=== PATIENT | female | born 1980 | race American Indian/Alaskan Native ===

== ENCOUNTER 2016-06-28 08:50 | Emergency (ER) | payer BC ==
[2016-06-28 09:35] LABS: Basophils % (Auto) 0.2 % (0.0-1.8); Eosinophils % (Auto) 0.7 % (0.0-4.3); Hematocrit 34.5 % (30.3-42.9); Hemoglobin 11.2 gm/dl (10.1-14.3); Mean Corpuscular HGB Conc 32 % (30-34); Mean Corpuscular Hemoglobin 33 pg (28-32); Mean Corpuscular Volume 102 fl (79-97); Platelet Count 274 K/mm3 (140-440); Red Cell Distribution Width 14.4 % (13.2-15.2); White Blood Count 6.7 K/mm3 (4.5-11.0)
[2016-06-28 10:43] LABS: Alanine Aminotransferase 17 units/L (7-56); Albumin 3.5 g/dL (3.9-5); Albumin/Globulin Ratio 0.9 %; Alkaline Phosphatase 52 units/L (35-129); Anion Gap 18 mmol/L; BUN/Creatinine Ratio 23.33; Bilirubin,Total 0.4 mg/dL (0.1-1.2); Blood Urea Nitrogen 14 mg/dL (7-17); Calcium 9.2 mg/dL (8.4-10.2); Carbon Dioxide 20 mmol/L (22-30); Chloride 104.8 mmol/L (98-107); Glucose 78 mg/dL (65-100); Lipase 19 units/L (13-60); Potassium 3.8 mmol/L (3.6-5.0); Sodium 139 mmol/L (137-145); Total Protein 7.5 g/dL (6.3-8.2)
[2016-06-28 11:35] LABS: Bilirubin,Urine NEG (Negative); Blood,Urine NEG (Negative); Ketones,Urine NEG (Negative); Leukocyte Esterase,Urine NEG (Negative); Mucus,Urine FEW /HPF; Nitrite,Urine NEG (Negative); Protein,Urine <15 mg/dL mg/dL (Negative); Urobilinogen,Urine < 2.0 mg/dL (<2.0)
[2016-06-28 11:56] LABS: WBC,Urine < 1.0 /HPF (0.0-6.0)
--- NOTE | 2016-06-28 12:02 | Emergency Department Report ---
HPI - General Chief Complaint: Abdominal Pain Time Seen by Provider: 06/28/16 11:44 - HPI HPI: Room 7 The patient is a 35-year-old female presenting with a chief complaint of abdominal pain. The patient states for 1 week she has had intermittent lower abdominal cramping. The patient states she missed her period this month and when she took a home test was positive. The patient states "a couple of days ago" she had vaginal spotting which has since resolved. Location: Lower abdomen Duration: Intermittent times one week Quality: Cramping Severity: Moderate Modifying factors: [see above] Context: [see above] Mode of transportation: Unknown ED Past Medical Hx - Past Medical History Previous Medical History?: Yes Additional medical history: HSV - Surgical History Past Surgical History?: No - Family History Family history: no significant - Social History Smoking Status: Never Smoker Substance Use Type: Alcohol (occasional) - Medications Home Medications: Home Medications Medication Instructions Recorded Confirmed Last Taken Type Cyclobenzaprine [Flexeril] 10 mg PO PRN #10 tablet 03/20/16 Unknown Rx Ibuprofen [Motrin] 800 mg PO Q8HR PRN #20 tablet 03/20/16 Unknown Rx ED Review of Systems ROS: Stated complaint: ABD PAIN Other details as noted in HPI Comment: All other systems reviewed and negative Constitutional: denies: chills, fever Eyes: denies: eye pain, eye discharge, vision change ENT: denies: ear pain, throat pain Respiratory: denies: cough, shortness of breath, wheezing Cardiovascular: denies: chest pain, palpitations Endocrine: no symptoms reported Gastrointestinal: abdominal pain. denies: nausea, vomiting Genitourinary: abnormal menses Musculoskeletal: denies: back pain, joint swelling, arthralgia Skin: denies: rash, lesions Neurological: denies: headache, weakness, paresthesias Psychiatric: denies: anxiety, depression Hematological/Lymphatic: denies: easy bleeding, easy bruising Physical Exam - Physical Exam Vital Signs: Vital Signs 06/28/16 06/28/16 09:04 11:31 Temperature 98.1 F Pulse Rate 76 Respiratory 18 Rate Blood Pressure 126/68 O2 Sat by Pulse 100 100 Oximetry Physical Exam: GENERAL: The patient is well-developed well-nourished female lying on stretcher not appearing to be in acute distress. [] HEENT: Normocephalic. Atraumatic. Extraocular motions are intact. Patient has moist mucous membranes. NECK: Supple. Urgent midline CHEST/LUNGS: Clear to auscultation. There is no respiratory distress noted. HEART/CARDIOVASCULAR: Regular. There is no tachycardia. There is no gallop rub or murmur. ABDOMEN: Abdomen is soft, with pain in the lower abdomen. Patient has normal bowel sounds. There is no abdominal distention. SKIN: There is no rash. There is no edema. There is no diaphoresis. NEURO: The patient is awake, alert, and oriented. The patient is cooperative. The patient has normal speech MUSCULOSKELETAL: There is no evidence of acute injury. ED Course Vital Signs 06/28/16 06/28/16 09:04 11:31 Temperature 98.1 F Pulse Rate 76 Respiratory 18 Rate Blood Pressure 126/68 O2 Sat by Pulse 100 100 Oximetry ED Medical Decision Making - Lab Data Result diagrams: 06/28/16 09:26 06/28/16 09:26 Laboratory Tests 06/28/16 06/28/16 06/28/16 09:26 09:26 09:26 WBC 6.7 RBC 3.40 L Hgb 11.2 Hct 34.5 MCV 102 H MCH 33 H MCHC 32 RDW 14.4 Plt Count 274 Lymph % (Auto) 18.5 [place] % (Auto) 7.7 H Eos % (Auto) 0.7 Baso % (Auto) 0.2 Lymph # 1.2 [place] # 0.5 Eos # 0.0 Baso # 0.0 Seg Neutrophils % 72.9 H Seg Neutrophils # 4.9 Sodium 139 Potassium 3.8 Chloride 104.8 Carbon Dioxide 20 L Anion Gap 18 BUN 14 Creatinine 0.6 L Estimated GFR > 60 BUN/Creatinine Ratio 23.33 Glucose 78 Calcium 9.2 Total Bilirubin 0.4 AST 19 ALT 17 Alkaline Phosphatase 52 Total Protein 7.5 Albumin 3.5 L Albumin/Globulin Ratio 0.9 Lipase 19 HCG, Quant 986.8 H Urine Color Urine Turbidity Urine pH Ur Specific Ashley Urine Protein Urine Glucose (UA) Urine Ketones Urine Blood Urine Nitrite Ur Reducing Substances Urine Bilirubin Urine Ictotest Urine Urobilinogen Ur Leukocyte Esterase Urine WBC (Auto) Urine RBC (Auto) U Epithel Cells (Auto) Urine Mucus Urine HCG, Qual 06/28/16 Unknown WBC RBC Hgb Hct MCV MCH MCHC RDW Plt Count Lymph % (Auto) [place] % (Auto) Eos % (Auto) Baso % (Auto) Lymph # [place] # Eos # Baso # Seg Neutrophils % Seg Neutrophils # Sodium Potassium Chloride Carbon Dioxide Anion Gap BUN Creatinine Estimated GFR BUN/Creatinine Ratio Glucose Calcium Total Bilirubin AST ALT Alkaline Phosphatase Total Protein Albumin Albumin/Globulin Ratio Lipase HCG, Quant Urine Color Yellow Urine Turbidity Clear Urine pH 8.0 H Ur Specific Ashley 1.021 Urine Protein <15 mg/dl Urine Glucose (UA) Neg Urine Ketones Neg Urine Blood Neg Urine Nitrite Neg Ur Reducing Substances Not Reportable Urine Bilirubin Neg Urine Ictotest Not Reportable Urine Urobilinogen < 2.0 Ur Leukocyte Esterase Neg Urine WBC (Auto) < 1.0 Urine RBC (Auto) 1.0 U Epithel Cells (Auto) 6.0 Urine Mucus Few Urine HCG, Qual Positive A Laboratory Tests 06/28/16 06/28/16 06/28/16 09:26 09:26 09:26 WBC 6.7 RBC 3.40 L Hgb 11.2 Hct 34.5 MCV 102 H MCH 33 H MCHC 32 RDW 14.4 Plt Count 274 Lymph % (Auto) 18.5 [place] % (Auto) 7.7 H Eos % (Auto) 0.7 Baso % (Auto) 0.2 Lymph # 1.2 [place] # 0.5 Eos # 0.0 Baso # 0.0 Seg Neutrophils % 72.9 H Seg Neutrophils # 4.9 Sodium 139 Potassium 3.8 Chloride 104.8 Carbon Dioxide 20 L Anion Gap 18 BUN 14 Creatinine 0.6 L Estimated GFR > 60 BUN/Creatinine Ratio 23.33 Glucose 78 Calcium 9.2 Total Bilirubin 0.4 AST 19 ALT 17 Alkaline Phosphatase 52 Total Protein 7.5 Albumin 3.5 L Albumin/Globulin Ratio 0.9 Lipase 19 HCG, Quant 986.8 H Urine Color Urine Turbidity Urine pH Ur Specific Ashley Urine Protein Urine Glucose (UA) Urine Ketones Urine Blood Urine Nitrite Ur Reducing Substances Urine Bilirubin Urine Ictotest Urine Urobilinogen Ur Leukocyte Esterase Urine WBC (Auto) Urine RBC (Auto) U Epithel Cells (Auto) Urine Mucus Urine HCG, Qual Blood Type Ord Rhogam Gestat Weeks 06/28/16 06/28/16 11:56 Unknown WBC RBC Hgb Hct MCV MCH MCHC RDW Plt Count Lymph % (Auto) [place] % (Auto) Eos % (Auto) Baso % (Auto) Lymph # [place] # Eos # Baso # Seg Neutrophils % Seg Neutrophils # Sodium Potassium Chloride Carbon Dioxide Anion Gap BUN Creatinine Estimated GFR BUN/Creatinine Ratio Glucose Calcium Total Bilirubin AST ALT Alkaline Phosphatase Total Protein Albumin Albumin/Globulin Ratio Lipase HCG, Quant Urine Color Yellow Urine Turbidity Clear Urine pH 8.0 H Ur Specific Ashley 1.021 Urine Protein <15 mg/dl Urine Glucose (UA) Neg Urine Ketones Neg Urine Blood Neg Urine Nitrite Neg Ur Reducing Substances Not Reportable Urine Bilirubin Neg Urine Ictotest Not Reportable Urine Urobilinogen < 2.0 Ur Leukocyte Esterase Neg Urine WBC (Auto) < 1.0 Urine RBC (Auto) 1.0 U Epithel Cells (Auto) 6.0 Urine Mucus Few Urine HCG, Qual Positive A Blood Type AB POSITIVE Ord Rhogam Gestat Weeks Rh pos - Radiology Data Radiology results: report reviewed (pelvic ultrasound), image reviewed (pelvic ultrasound) Pelvic ultrasound (read by radiologist)-no masses in the uterus. No mass at the adnexa. Thick endometrium. - Differential Diagnosis ectopic , threatened , spontaneous , missed aborti Critical care attestation.: If time is entered above; I have spent that time in minutes in the direct care of this critically ill patient, excluding procedure time. ED Disposition Clinical Impression: Threatened Disposition: DISCHARGED TO HOME OR SELFCARE Is pt being admited?: No Does the pt Need Aspirin: No Condition: Stable Instructions: Abdominal Pain (ED), Threatened Miscarriage (ED), Ectopic (ED) Additional Instructions: Your serum hCG level today was 986.8mIU/mL. You should follow up with an OB/ FAMILY MEDICINE PHYSICIAN in 48 hours to have this level rechecked. Return to the emergency department immediately should you develop worsening symptoms, fever, inability to tolerate food or liquid or any other concerns. Referrals: GAMAL DELEON MD [Staff Physician] - 06/30/16 (Dr. Deleon is an [employer]. Please follow up with her or your [employer] for further evaluation. Your serum hCG level today was 986.8mIU/mL. You should follow up with an [employer] in 48 hours to have this level rechecked.) Time of Disposition: 13:21
--- NOTE | 2016-06-28 13:11 | Ultrasound Report ---
Right internal sinus sonography: History: Vaginal bleeding. Pelvic pain. Findings: Uterus measures 9.5 x 5.4 x 4.9 cm. Endometrial thickness 20 mm. No mass in the endometrium. Right ovary 2. 7 x 2.1 x 2.1 cm. No mass. Left ovary 3.7 x 2.5 x 2.5 cm. No mass. This No fluid in the cul-de-sac. Impression: No mass in the uterus. No mass at the adnexa. Thick endometrium.
[2016-06-28 13:41] VITALS: BP 124/78
== END 2016-06-28 13:38 | disposition home or self-care (01) ==
LOC: ED 08:50
DX: O20.0 Threatened abortion (principal); Z3A.00 Weeks of gestation of pregnancy not specified
CPT/HCPCS: 36415; 76801; 76817; 80053; 81001; 81025; 83690; 84702; 85025; 86900; 86901; 99284

== ENCOUNTER 2016-09-11 09:09 | Emergency (ER) | payer BC ==
[2016-09-11 09:21] VITALS: BP 148/94
[2016-09-11] MEDS ORDERED: FUL-GLO OP ONE (10:11)
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
[2016-09-11] MEDS ORDERED: MOTRIN PO ONE (10:12)
== END 2016-09-11 11:01 | disposition home or self-care (01) ==
LOC: ED 09:09
DX: S05.02XA Injury of conjunctiva and corneal abrasion without foreign body, left eye, initial encounter (principal); F12.10 Cannabis abuse, uncomplicated; Z87.891 Personal history of nicotine dependence; X58.XXXA Exposure to other specified factors, initial encounter; Y93.9 Activity, unspecified; Y92.9 Unspecified place or not applicable; Y99.9 Unspecified external cause status
CPT/HCPCS: 99283

== ENCOUNTER 2017-09-26 15:39 | Emergency (ER) | payer BC, MEDICAID ==
[2017-09-26 16:06] VITALS: BP 143/84
--- NOTE | 2017-09-26 17:21 | Emergency Department Report ---
ED General Adult HPI - General Chief complaint: Headache Stated complaint: SWOLLEN ANKLES/HEADACHE Time Seen by Provider: 09/26/17 17:20 Source: patient, family Mode of arrival: Ambulatory Limitations: No Limitations - History of Present Illness Initial comments: This is a 36-year-old female here report headache and swelling to both feet that started 1 week ago. She says she is having sensitivity to light and has to wear dark glasses. Denies any nausea or vomiting. Denies any head injury. Denies any neck pain. Denies any fever or chills. Denies any chest pain or shortness of breath. She said her legs feels like she has pins in them. Pain is 10 out of 10 to head and bilateral lower extremity. Denies any history of control or recent long distance travel for 3 or more hours. Denies any history of recent convalescent period, cancer recently, blood clots. Denies any family history of blood clots. Headache is achy located all over and leg pain feels like there are pins in them and sharp. Nothing makes pain better and nothing makes it worse and she did not take any medication for pain prior to coming to the hospital but that she tried [id number] pain medicine a few days ago and it didn't help. Last menstrual period 09/18/2017 Complaint: swelling to feet/leg pain and GUTIERREZ Onset/Timin -: week(s) Location: head, lower extremity Radiation: non-radiation Severity scale (0 -10): 10 Quality: aching, sharp Consistency: constant Improves with: none Worsens with: none Associated Symptoms: headaches. denies: confusion, chest pain, cough, diaphoresis, fever/chills, loss of appetite, malaise, nausea/vomiting, rash, seizure, shortness of breath, syncope, weakness Treatments Prior to Arrival: none - Related Data Previous Rx's Medication Instructions Recorded Last Taken Type Cyclobenzaprine [Flexeril] 10 mg PO PRN #10 tablet 03/20/16 Unknown Rx Ibuprofen [Motrin] 800 mg PO Q8HR PRN #20 tablet 03/20/16 Unknown Rx Ibuprofen [Motrin] 600 mg PO Q8H PRN #20 tablet 09/11/16 Unknown Rx Polyvinyl Alcohol/Povidone 1 - 2 drop OP Q4H PRN #1 bottle 09/11/16 Unknown Rx [Artificial Tears Drops 0.5/0.6 %] Tobramycin 0.3% [Tobrex] 1 drop OS Q8HR #1 bottle 09/11/16 Unknown Rx Codeine/Butalbital/ASA/Caffein 1 each PO Q12H PRN #12 capsule 09/26/17 Unknown Rx [Fiorinal with Codeine #3 Cap] Ondansetron [Zofran Odt] 4 mg PO Q8HR PRN #12 tab.rapdis 09/26/17 Unknown Rx Allergies Allergy/AdvReac Type Severity Reaction Status Date / Time No Known Allergies Allergy Verified 09/26/17 16:01 ED Review of Systems ROS: Stated complaint: SWOLLEN ANKLES/HEADACHE Other details as noted in HPI Constitutional: denies: chills, fever Eyes: other (photosensitivity). denies: eye pain, eye discharge, vision change ENT: denies: ear pain, throat pain, congestion Respiratory: denies: cough, shortness of breath, SOB with exertion, SOB at rest , stridor, wheezing Cardiovascular: denies: chest pain, palpitations, syncope Gastrointestinal: denies: abdominal pain, nausea, vomiting, diarrhea, constipation, hematemesis, hematochezia Genitourinary: denies: urgency, dysuria, discharge Musculoskeletal: joint swelling, arthralgia. denies: back pain, myalgia Skin: denies: rash, lesions Neurological: headache. denies: weakness, numbness, paresthesias, confusion, abnormal gait, vertigo ED Past Medical Hx - Past Medical History Previous Medical History?: Yes Hx Headaches / Migraines: Yes Additional medical history: HSV, Vaginal delivery x 3, x 2 - Surgical History Past Surgical History?: Yes Additional Surgical History: x 2. Recent 07-26-16 - Family History Family history: hypertension - Social History Smoking Status: Never Smoker Substance Use Type: None - Medications Home Medications: Home Medications Medication Instructions Recorded Confirmed Last Taken Type Cyclobenzaprine [Flexeril] 10 mg PO PRN #10 tablet 03/20/16 Unknown Rx Ibuprofen [Motrin] 800 mg PO Q8HR PRN #20 tablet 03/20/16 Unknown Rx Ibuprofen [Motrin] 600 mg PO Q8H PRN #20 tablet 09/11/16 Unknown Rx Polyvinyl Alcohol/Povidone 1 - 2 drop OP Q4H PRN #1 bottle 09/11/16 Unknown Rx [Artificial Tears Drops 0.5/0.6 %] Tobramycin 0.3% [Tobrex] 1 drop OS Q8HR #1 bottle 09/11/16 Unknown Rx Codeine/Butalbital/ASA/Caffein 1 each PO Q12H PRN #12 capsule 09/26/17 Unknown Rx [Fiorinal with Codeine #3 Cap] Ondansetron [Zofran Odt] 4 mg PO Q8HR PRN #12 tab.rapdis 09/26/17 Unknown Rx ED Physical Exam - General Limitations: No Limitations General appearance: alert, in no apparent distress - Head Head exam: Present: atraumatic, normocephalic, normal inspection, other (normal exam) - Eye Eye exam: Present: normal appearance, PERRL, EOMI. Absent: nystagmus, periorbital swelling, periorbital tenderness Pupils: Present: normal accommodation - ENT ENT exam: Present: normal exam, normal orophraynx, mucous membranes moist, TM's normal bilaterally, normal external ear exam - Neck Neck exam: Present: normal inspection, full ROM, other (no C-spine tenderness). Absent: tenderness, lymphadenopathy - Respiratory Respiratory exam: Present: normal lung sounds bilaterally. Absent: respiratory distress - Cardiovascular Cardiovascular Exam: Present: regular rate, normal rhythm, normal heart sounds. Absent: systolic murmur, diastolic murmur - GI/Abdominal GI/Abdominal exam: Present: soft, normal bowel sounds. Absent: distended, tenderness, guarding, rebound, rigid, organomegaly, mass, bruit, pulsatile mass , hernia - Extremities Exam Extremities exam: Present: normal inspection, full ROM, normal capillary refill , other (no clubbing, cyanosis or edema. +2 pulses to all extremities and no neurovascular compromise except patient with swelling to both feet. Positive Homans sign. No laceration abrasion or contusion noted. Capillary refill is less than 3 seconds.). Absent: tenderness, pedal edema, joint swelling, calf tenderness - Back Exam Back exam: Present: normal inspection, full ROM, other (ambulates without any difficulties). Absent: tenderness, CVA tenderness (R), CVA tenderness (L), muscle spasm, paraspinal tenderness, vertebral tenderness, rash noted - Neurological Exam Neurological exam: Present: alert, oriented X3, normal gait, reflexes normal. Absent: motor sensory deficit - Expanded Neurological Exam Expanded Neurological exam: Absent: innattentive, memory loss-remote event, memory loss- recent event, ataxia, receptive aphasia, expressive aphasia, total aphasia, tremor, protecting the airway Patient oriented to: Present: person, place, time Speech: Present: fluid speech Cranial nerves: EOM's Intact: Normal, Gag Reflex: Normal, Tongue Deviation: Normal, Nystagmus: Normal, Facial Sensation: Normal Cerebellar function: Romberg: Normal Upper motor neuron: Pronator Drift: Normal, Sensory Extinction: Normal Sensory exam: Upper Extremity Light Touch: Normal, Upper Extremity Temperature: Normal, UE 2 Point Discrimination: Normal, Lower Extremity Light Touch: Normal, Lower Extremity Temperature: Normal, LE 2 Point Discrimination: Normal Motor strength exam: RUE: 5, LUE: 5, RLE: 5, LLE: 5 Best Eye Response ([place]): (4) open spontaneously Best Motor Response (Arturo): (6) obeys commands Best Verbal Response (Arturo): (5) oriented Arturo Total: 15 - Psychiatric Psychiatric exam: Present: normal affect, normal mood - Skin Skin exam: Present: warm, dry, intact, normal color. Absent: rash ED Course Vital Signs 09/26/17 16:01 Temperature 98.6 F Pulse Rate 65 Respiratory 18 Rate Blood Pressure 143/84 O2 Sat by Pulse 100 Oximetry - Reevaluation(s) Reevaluation #1: 09/26/17 17:59 Patient receive Percocet 5/325 2 tablets, Decadron 6 mg by mouth and Zofran 8 mg by mouth in emergency room and voice relief of headache. Reevaluation #2: 09/26/17 18:59 Patient remains stable, neurologically intact. Awaiting CT scan of the head. Reevaluation #3: 09/26/17 20:28 No change in neurological status the patient reports that her pain is better. ED Medical Decision Making - Lab Data Result diagrams: 09/26/17 18:12 09/26/17 18:12 Lab Results 09/26/17 09/26/17 09/26/17 Range/Units 18:12 18:12 18:12 WBC 6.2 (4.5-11.0) K/mm3 RBC 2.98 L (3.65-5.03) M/mm3 Hgb 10.1 (10.1-14.3) gm/dl Hct 30.1 L (30.3-42.9) % MCV 101 H (79-97) fl MCH 34 H (28-32) pg MCHC 34 (30-34) % RDW 14.0 (13.2-15.2) % Plt Count 300 (140-440) K/mm3 Lymph % (Auto) 25.7 (13.4-35.0) % [place] % (Auto) 7.6 H (0.0-7.3) % Eos % (Auto) 1.1 (0.0-4.3) % Baso % (Auto) 0.5 (0.0-1.8) % Lymph # 1.6 (1.2-5.4) K/mm3 [place] # 0.5 (0.0-0.8) K/mm3 Eos # 0.1 (0.0-0.4) K/mm3 Baso # 0.0 (0.0-0.1) K/mm3 Seg Neutrophils % 65.1 (40.0-70.0) % Seg Neutrophils # 4.0 (1.8-7.7) K/mm3 PT 13.6 (12.2-14.9) Sec. INR 0.99 (0.87-1.13) APTT 33.8 (24.2-36.6) Sec. D-Dimer 171.86 (0-234) ng/mlDDU Sodium (137-145) mmol/L Potassium (3.6-5.0) mmol/L Chloride (98-107) mmol/L Carbon Dioxide (22-30) mmol/L Anion Gap mmol/L BUN (7-17) mg/dL Creatinine (0.7-1.2) mg/dL Estimated GFR ml/min BUN/Creatinine Ratio % Glucose (65-100) mg/dL Calcium (8.4-10.2) mg/dL Total Bilirubin (0.1-1.2) mg/dL AST (5-40) units/L ALT (7-56) units/L Alkaline Phosphatase (35-129) units/L NT-Pro-B Natriuret Pep (0-450) pg/mL Total Protein (6.3-8.2) g/dL Albumin (3.9-5) g/dL Albumin/Globulin Ratio % HCG, Qual Negative (Negative) 09/26/17 09/26/17 Range/Units 18:12 18:12 WBC (4.5-11.0) K/mm3 RBC (3.65-5.03) M/mm3 Hgb (10.1-14.3) gm/dl Hct (30.3-42.9) % MCV (79-97) fl MCH (28-32) pg MCHC (30-34) % RDW (13.2-15.2) % Plt Count (140-440) K/mm3 Lymph % (Auto) (13.4-35.0) % [place] % (Auto) (0.0-7.3) % Eos % (Auto) (0.0-4.3) % Baso % (Auto) (0.0-1.8) % Lymph # (1.2-5.4) K/mm3 [place] # (0.0-0.8) K/mm3 Eos # (0.0-0.4) K/mm3 Baso # (0.0-0.1) K/mm3 Seg Neutrophils % (40.0-70.0) % Seg Neutrophils # (1.8-7.7) K/mm3 PT (12.2-14.9) Sec. INR (0.87-1.13) APTT (24.2-36.6) Sec. D-Dimer (0-234) ng/mlDDU Sodium 138 (137-145) mmol/L Potassium 3.7 (3.6-5.0) mmol/L Chloride 101.8 (98-107) mmol/L Carbon Dioxide 28 (22-30) mmol/L Anion Gap 12 mmol/L BUN 10 (7-17) mg/dL Creatinine 0.6 L (0.7-1.2) mg/dL Estimated GFR > 60 ml/min BUN/Creatinine Ratio 17 % Glucose 93 (65-100) mg/dL Calcium 8.9 (8.4-10.2) mg/dL Total Bilirubin 0.40 (0.1-1.2) mg/dL AST 17 (5-40) units/L ALT 10 (7-56) units/L Alkaline Phosphatase 59 (35-129) units/L NT-Pro-B Natriuret Pep 107.0 (0-450) pg/mL Total Protein 7.2 (6.3-8.2) g/dL Albumin 3.5 L (3.9-5) g/dL Albumin/Globulin Ratio 0.9 % HCG, Qual (Negative) - Radiology Data Radiology results: report reviewed CT scan of the brain without contrast dictated by radiologist and reviewed by myself. Shows no CT evidence of acute abnormalities. Patient: KARENA CR MR#: [id number] : 1980 Acct:[id number] Age/Sex: 36 / F ADM Date: 09/26/17 Loc: ED Attending Dr: Ordering Physician: WEI MARTINEZ Date of Service: 09/26/17 Procedure(s): CT head/brain wo con Accession Number(s): [id number] cc: WEI MARTINEZ FINAL REPORT PROCEDURE: CT HEAD/BRAIN WO CON TECHNIQUE: Computerized tomography of the head was performed without contrast material. HISTORY: headache x 2 weeks COMPARISON: 07/31/2015 FINDINGS: There is no CT evidence of intracranial mass, hemorrhage, acute territorial infarction, or hydrocephalus. The intracranial arteries are symmetric in density. Calvarium is intact. The visualized paranasal sinuses are aerated. There is minimal fluid density in the left mastoid. IMPRESSION: No CT evidence of acute abnormality Transcribed By: [facility] Dictated By: SUKH CURTIS M.D. Electronically Authenticated By: SUKH CURTIS M.D. Signed Date/Time: 09/26/171999 DD/ 99 TD/TT: 09/26/171999 - Medical Decision Making This is a 36-year-old female here for complaints of headache for over one week that has been ongoing with sensitivity to lights to her eyes and also she is complaining of bilateral feet swelling and and pain to her legs. She is here to be evaluated. Patient was seen and examined by myself and she had CT scan of the head without contrast which was dictated by radiologist and report reviewed by myself and this shows no abnormal findings. Patient also had CBC done which was stable, coag studies normal, d-dimer is normal and chemistries normal. test is negative. Pain is controlled with pain medication and patient was given results of labs and CT scan reports and she voiced understanding. I discussed this case with Dr. Vannessa Byers who agrees with treatment plan. A/P 1: Edema feet-I discussed the patient she needs to elevate extremity and decrease her sodium intake. BNP stable, D-dimer normal so there is no need to do Doppler ultrasound and this was discussed with Dr. Byers. Patient was criteria patient is low risk for DVT and given that she had negative d-dimer there is no need for Doppler ultrasound study. 2: Arthralgia bilateral lower extremity-patient was given Percocet 5/325 2 tablets by mouth which relieved her pain. 3: Headache -patient given Zofran 8 mg ODT, Percocet 5/325 2 tablets by mouth and the physical 60 mg by mouth and her headache has been relieved. She scan of the head without contrast with negative findings Patient educated on low-sodium diet and elevating her feet when she is sitting or lying, medication, diagnosis, laboratory and CT scan findings and she voiced understanding. She discharged home in stable condition to follow-up with neurologist which I' ll refer her to Dr. Don, her primary care physician, and haircutter to follow -up in 3-5 days. I also discussed with her that if her symptoms worsens to return to the emergency room. Her vital signs are stable, she is afebrile and nontoxic in appearance. Patient discharged home a prescription for Zofran and Fioricet with codeine and she voiced understanding discharge instruction and need to follow-up. - Differential Diagnosis DVT, CHF, edema, musculoskeletal pain Critical care attestation.: If time is entered above; I have spent that time in minutes in the direct care of this critically ill patient, excluding procedure time. ED Disposition Clinical Impression: Edema, lower extremity, Arthralgia of both lower legs Headache Qualifiers: Headache type: unspecified Headache chronicity pattern: episodic headache Intractability: not intractable Qualified Code(s): R51 - Headache Disposition: DC-01 TO HOME OR SELFCARE Is pt being admited?: No Does the pt Need Aspirin: No Condition: Stable Instructions: Arthralgia (ED), Leg Edema (ED), Acute Headache (ED) Additional Instructions: Please follow up with Dr. Don was a neurologist for headache. Follow-up with haircutter with swelling to both lower extremity. Please see diet on manage in sodium. Follow-up with primary care physician. If his symptoms worsen, return to the emergency room. Take Fioricet with codeine but please not drive or operate heavy machinery as medication causes drowsiness. Take Zofran for nausea if needed. Prescriptions: Codeine/Butalbital/ASA/Caffein [Fiorinal with Codeine #3 Cap] 1 each PO Q12H PRN #12 capsule PRN Reason: Headache Ondansetron [Zofran Odt] 4 mg PO Q8HR PRN #12 tab.rapdis PRN Reason: Nausea And Vomiting Referrals: PRIMARY CARE, [Primary Care Provider] - 3-5 Days [facility] [Outside] - 3-5 Days KOLTON DON MD [Staff Physician] - 3-5 Days MINI JAMESON MD [Staff Physician] - 3-5 Days Forms: Work/School Release Form(ED), Accompanied Note
[2017-09-26] MEDS ORDERED: ZOFRAN ODT PO ONE (17:23)
[2017-09-26] MEDS ORDERED: DELTASONE PO ONE (17:23)
[2017-09-26] MEDS ORDERED: NORCO 5/325 PO ONE (17:24)
[2017-09-26 18:26] LABS: Basophils % (Auto) 0.5 % (0.0-1.8); Eosinophils # (Auto) 0.1 K/mm3 (0.0-0.4); Eosinophils % (Auto) 1.1 % (0.0-4.3); Hematocrit 30.1 % (30.3-42.9); Hemoglobin 10.1 gm/dl (10.1-14.3); Lymphocytes # (Auto) 1.6 K/mm3 (1.2-5.4); Lymphocytes % (Auto) 25.7 % (13.4-35.0); Mean Corpuscular HGB Conc 34 % (30-34); Mean Corpuscular Hemoglobin 34 pg (28-32); Mean Corpuscular Volume 101 fl (79-97); Monocytes # (Auto) 0.5 K/mm3 (0.0-0.8); Monocytes % (Auto) 7.6 % (0.0-7.3); Platelet Count 300 K/mm3 (140-440); Red Blood Count 2.98 M/mm3 (3.65-5.03)
[2017-09-26 18:37] LABS: INR 0.99 (0.87-1.13)
[2017-09-26 18:38] LABS: Partial Thromboplastin Time 33.8 Sec. (24.2-36.6)
[2017-09-26 18:44] LABS: Alanine Aminotransferase 10 units/L (7-56); Albumin 3.5 g/dL (3.9-5); BUN/Creatinine Ratio 17; Blood Urea Nitrogen 10 mg/dL (7-17); Calcium 8.9 mg/dL (8.4-10.2); Hemolysis Index 0
--- NOTE | 2017-09-26 20:04 | Cat Scan Report ---
FINAL REPORT PROCEDURE: CT HEAD/BRAIN WO CON TECHNIQUE: Computerized tomography of the head was performed without contrast material. HISTORY: headache x 2 weeks COMPARISON: 07/31/2015 FINDINGS: There is no CT evidence of intracranial mass, hemorrhage, acute territorial infarction, or hydrocephalus. The intracranial arteries are symmetric in density. Calvarium is intact. The visualized paranasal sinuses are aerated. There is minimal fluid density in the left mastoid. IMPRESSION: No CT evidence of acute abnormality
== END 2017-09-26 20:50 | disposition home or self-care (01) ==
LOC: ED 15:39
DX: G43.909 Migraine, unspecified, not intractable, without status migrainosus (principal); R60.0 Localized edema
CPT/HCPCS: 36415; 70450; 80053; 83880; 84703; 85025; 85379; 85610; 85730; 99284; J7512; Q0162